=== PATIENT | male | born 1950 | race Caucasian/White ===

== ENCOUNTER 2016-10-22 15:18 | Outpatient (CLI) | payer MEDICARE, BC | END 2016-10-22 23:59 | disposition home or self-care (01) | LOC: WOU 15:18 | PROVIDERS: ATTEND Surgery | DX: S60.212A Contusion of left wrist, initial encounter (principal); V28.0XXA Motorcycle driver injured in noncollision transport accident in nontraffic accident, initial encounter; Y92.89 Other specified places as the place of occurrence of the external cause; R60.0 Localized edema; Z87.891 Personal history of nicotine dependence; Z98.890 Other specified postprocedural states | CPT/HCPCS: G0463 ==

== ENCOUNTER 2019-04-14 05:18 | Day surgery (SDC) | payer MEDICARE, BC ==
[2019-04-14] MEDS ORDERED: FENTANYL PF 100MCG/2ML AMPUL ONE ×3 (06:57→09:44)
[2019-04-14] MEDS ORDERED: BUPIVACAINE 0.5 % PF 150 MG/30 ML VIAL ONE (07:02)
[2019-04-14] MEDS ORDERED: BACITRACIN 50000 UNITS/VIAL ONE (07:02)
[2019-04-14] MEDS ORDERED: HYDROMORPHONE INJ 2 MG/ML DISP.SYRIN ONE (09:31)
[2019-04-14] MEDS ORDERED: HYDROCODONE/APAP 10/325MG 1 EA TABLET ONE (09:38)
[2019-04-14] MEDS ORDERED: MORPHINE SULFATE INJ 4 MG/ML DISP.SYRIN IV PRN (10:00)
[2019-04-14] MEDS ORDERED: oxyCODONE/APAP (5/325 MG) 1 UDTAB TABLET PO PRN ×2 (10:00)
[2019-04-14] MEDS ORDERED: MIDAZOLAM HCL 2 MG/2ML VIAL ONE (10:09)
== END 2019-04-14 12:50 | disposition home or self-care (01) ==
LOC: DS 05:18
PROVIDERS: ATTEND Student in an Organized Health Care Education/Training Program
DX: S82.852A Displaced trimalleolar fracture of left lower leg, initial encounter for closed fracture (principal); X58.XXXA Exposure to other specified factors, initial encounter; Y93.89 Activity, other specified; Y92.89 Other specified places as the place of occurrence of the external cause; Y99.8 Other external cause status; E78.5 Hyperlipidemia, unspecified; J44.9 Chronic obstructive pulmonary disease, unspecified; G47.30 Sleep apnea, unspecified; Z98.890 Other specified postprocedural states; Z80.1 Family history of malignant neoplasm of trachea, bronchus and lung; Z82.49 Family history of ischemic heart disease and other diseases of the circulatory system; Z79.82 Long term (current) use of aspirin; Z79.899 Other long term (current) drug therapy; Z87.891 Personal history of nicotine dependence
CPT/HCPCS: 27822; 36415; 73600; 86850; A6402; C1713 ×5; C1769; J0690; J1170; J2250; J3010 ×3; J3490 ×3; J7030